=== PATIENT | male | born 1950 | race Caucasian/White ===

== ENCOUNTER 2020-03-18 00:04 | Emergency (ER) | payer MEDICARE ==
--- NOTE | 2020-03-18 00:07 | ED Physician Documentation ---
History of Present Illness - Stated complaint Stated Complaint: R SIDE PX - History obtained from History obtained from: Patient - Additonal information Additional information: The patient is a 69-year-old male who presents with abdominal pain as well as some right-sided lower back pain without hematuria or dysuria or urinary frequency he denies any bowel or bladder dysfunction or saddle anesthesia denies any fevers reports he has been to his doctor but his doctors not done anything according to the patient. Patient's had a previous cholecystectomy. Denies any nausea vomiting diarrhea or constipation. Review of Systems Constitutional: reports: Reviewed and negative Eyes: reports: Reviewed and negative Ears: reports: Reviewed and negative Nose: reports: Reviewed and negative Throat: reports: Reviewed and negative Cardiac: reports: Reviewed and negative Respiratory: reports: Reviewed and negative GI: reports: Abdominal Pain : reports: Reviewed and negative Skin: reports: Reviewed and negative Musculoskeletal: reports: Back pain Neurologic: reports: Reviewed and negative Psychiatric: reports: Reviewed and negative Endocrine: reports: Reviewed and negative Immunocompromised: reports: Reviewed and negative PD PAST MEDICAL HISTORY - Present Medications Home Medications: Ambulatory Orders Medication Instructions Recorded Confirmed Benztropine [Cogentin] 1 tab PO TID 03/18/20 03/18/20 Hydrocodone/Acetaminophen [[place] 1 each PO Q6HR PRN #10 tablet 03/18/20 5-325 Tablet] Omeprazole 1 tab PO DAILY 03/18/20 03/18/20 Ondansetron Odt [Zofran Odt] 4 mg TL Q6H PRN #10 tablet 03/18/20 Triamterene/Hydrochlorothiazid 1 tab PO DAILY 03/18/20 03/18/20 [Triamterene-Hctz 37.5-25 mg Cp] Trifluoperazine HCl 1 tab PO DAILY 03/18/20 03/18/20 - Allergies Allergies/Adverse Reactions: Allergies Allergy/AdvReac Type Severity Reaction Status Date / Time No Known Drug Allergies Allergy Verified 03/18/20 00:12 PD ED PE NORMAL - Vitals Vital signs reviewed: Yes - General General: Alert and oriented X 3, No acute distress - HEENT HEENT: PERRL - Neck Neck: Supple, no meningeal sign - Cardiac Cardiac: RRR, No murmur, Strong equal pulses - Respiratory Respiratory: No respiratory distress, Clear bilaterally - Abdomen Abdomen: Normal bowel sounds, Soft, Other (No midline abdominal pulsatile mass, diffuse abdominal tenderness with no peritoneal signs.) - Male Male : Deferred - Rectal Rectal: Deferred - Back Back: No CVA TTP, No spinal TTP, Other (Tenderness to the lumbar paraspinal muscles but no midline tenderness palpation no CVA tenderness.) - Derm Derm: Warm and dry - Extremities Extremities: No deformity - Neuro Neuro: Alert and oriented X 3, lamp shade sewer 2-12 intact, No motor deficit, No sensory deficit, Normal speech - Psych Psych: Normal mood, Normal affect Results - Vitals Vitals: Vital Signs - 24 hr 03/18/20 03/18/20 03/18/20 00:09 01:06 01:24 Temperature 37.2 C Heart Rate 96 79 Respiratory 16 16 16 Rate Blood Pressure 185/96 H 176/109 H O2 Saturation 96 98 03/18/20 02:37 Temperature Heart Rate 71 Respiratory 16 Rate Blood Pressure 176/94 H O2 Saturation 98 Oxygen O2 Source Room air - Labs Labs: Laboratory Tests 03/18/20 03/18/20 03/18/20 00:30 00:30 00:30 WBC 7.1 RBC 4.92 Hgb 14.9 Hct 43.9 MCV 89.2 MCH 30.3 MCHC 33.9 RDW 14.5 Plt Count 232 MPV 10.2 Neut # (Auto) 4.6 Lymph # (Auto) 1.7 [place] # (Auto) 0.6 Eos # (Auto) 0.2 Baso # (Auto) 0.0 Absolute Nucleated RBC 0.00 Nucleated RBC % 0.0 PT 13.1 H INR 1.2 APTT 26.5 Sodium 137 Potassium 3.4 L Chloride 99 L Carbon Dioxide 28 Anion Gap 10.0 BUN 14 Creatinine 1.4 H Estimated GFR (MDRD) 51 L Glucose 171 H Lactic Acid Calcium 9.4 Total Bilirubin 1.0 AST 26 ALT 39 Alkaline Phosphatase 98 Total Creatine Kinase 99 Total Protein 8.3 H Albumin 3.8 Globulin 4.5 H Albumin/Globulin Ratio 0.8 L Lipase 30 Urine Color Urine Clarity Urine pH Ur Specific [place] Urine Protein Urine Glucose (UA) Urine Ketones Urine Occult Blood Urine Nitrite Urine Bilirubin Urine Urobilinogen Ur Leukocyte Esterase Ur Microscopic Review Urine Culture Comments 03/18/20 03/18/20 00:30 01:50 WBC RBC Hgb Hct MCV MCH MCHC RDW Plt Count MPV Neut # (Auto) Lymph # (Auto) [place] # (Auto) Eos # (Auto) Baso # (Auto) Absolute Nucleated RBC Nucleated RBC % PT INR APTT Sodium Potassium Chloride Carbon Dioxide Anion Gap BUN Creatinine Estimated GFR (MDRD) Glucose Lactic Acid 0.8 Calcium Total Bilirubin AST ALT Alkaline Phosphatase Total Creatine Kinase Total Protein Albumin Globulin Albumin/Globulin Ratio Lipase Urine Color YELLOW Urine Clarity CLEAR Urine pH 6.0 Ur Specific [place] <=1.005 Urine Protein NEGATIVE Urine Glucose (UA) NEGATIVE Urine Ketones NEGATIVE Urine Occult Blood NEGATIVE Urine Nitrite NEGATIVE Urine Bilirubin NEGATIVE Urine Urobilinogen 0.2 (NORMAL) Ur Leukocyte Esterase NEGATIVE Ur Microscopic Review NOT INDICATED Urine Culture Comments NOT INDICATED PD MEDICAL DECISION MAKING - ED course Complexity details: reviewed old records, reviewed results, re-evaluated patient, d/w patient, d/w family ED course: 69-year-old male with abdominal pain and some right-sided lower back pain for several weeks his CT scan preliminary radiology interpretation shows an impression of moderate intrahepatic biliary ductal dilation [place] particularly in the left lobe of the liver which is greater than expected for patient status post cholecystectomy further evaluation of nonemergent MR/MRCP is recommended. I explained these results in detail to the patient and family member and recommended outpatient follow-up which they have agreed to do. Departure - Departure Disposition: 01 Home, Self Care Clinical Impression: Intrahepatic bile duct dilation Abdominal pain Qualifiers: Abdominal location: unspecified location Qualified Code(s): R10.9 - Unspecified abdominal pain Condition: Stable Instructions: ED Abdominal Pain Unkn Cause Follow-Up: Jose Luis Che MD [Primary Care Provider] - Tomorrow Prescriptions: Hydrocodone/Acetaminophen [[place] 5-325 Tablet] 1 each PO Q6HR PRN #10 tablet PRN Reason: Pain Ondansetron Odt [Zofran Odt] 4 mg TL Q6H PRN #10 tablet PRN Reason: Nausea / Vomiting Comments: Please follow-up with your primary care provider this week.Your CT scan shows moderate intrahepatic biliary ductal dilation. Further evaluation with a nonemergent MRCP is recommended.
[2020-03-18] MEDS ORDERED: SODIUM CHLORIDE 0.9% 1,000 ML IV STA (00:16)
[2020-03-18] MEDS ORDERED: ONDANSETRON 4 MG/2 ML VIAL IVP STA (00:16)
[2020-03-18] MEDS ORDERED: MORPHINE 2 MG/ML CARPUJECT IVP STA (00:16)
[2020-03-18] MEDS ORDERED: KETOROLAC 30 MG/ML VIAL IVP STA (00:17)
[2020-03-18] MEDS ORDERED: IOVERSOL 320 100 ML VIAL IVP ONE ×2 (00:27→01:26)
[2020-03-18 00:38] LABS: BASOPHILS % (AUTO) 0.6 %; EOSINOPHILS # (AUTO) 0.2 10^3/uL (0.0-0.7); EOSINOPHILS % (AUTO) 2.4 %; HGB - HEMOGLOBIN 14.9 g/dL (14.0-18.0); LYMPHOCYTES # (AUTO) 1.7 10^3/uL (1.5-3.5); LYMPHOCYTES % (AUTO) 23.4 %; MEAN CORPUSCULAR HEMOGLOBIN 30.3 pg (27.0-31.0); MEAN CORPUSCULAR HGB CONC 33.9 g/dL (32.0-36.0); MEAN CORPUSCULAR VOLUME 89.2 fL (80.0-94.0); MEAN PLATELET VOLUME 10.2 fL (7.4-11.4); MONOCYTES # (AUTO) 0.6 10^3/uL (0.0-1.0); MONOCYTES % (AUTO) 7.9 %; NEUTROPHILS # (AUTO) 4.6 10^3/uL (1.5-6.6); NEUTROPHILS % (AUTO) 65.4 %; PLT - PLATELET COUNT 232 10^3/uL (130-450); RED BLOOD COUNT 4.92 10^6/uL (4.70-6.10); RED CELL DISTRIBUTION WIDTH 14.5 % (12.0-15.0); WHITE BLOOD COUNT 7.1 x10^3/uL (4.8-10.8)
[2020-03-18 00:43] LABS: INR 1.2 (0.8-1.2); PT - PROTHROMBIN TIME 13.1 secs (9.9-12.6)
[2020-03-18 00:51] LABS: PARTIAL THROMBOPLASTIN TIME 26.5 secs (24.9-33.3)
[2020-03-18 00:52] LABS: ALBUMIN 3.8 g/dL (3.2-5.5); ALBUMIN/GLOBULIN RATIO 0.8 (1.0-2.2); CALCIUM 9.4 mg/dL (8.5-10.3); CREATININE 1.4 mg/dL (0.6-1.2); TOTAL PROTEIN 8.3 g/dL (6.7-8.2)
[2020-03-18 02:01] LABS: BILIRUBIN,URINE NEGATIVE (NEGATIVE); GLUCOSE, URINE (UA) NEGATIVE (NEGATIVE); KETONES,URINE (UA) NEGATIVE (NEGATIVE); LEUKOCYTE ESTERASE, URINE NEGATIVE (NEGATIVE); NITRITE,URINE NEGATIVE (NEGATIVE); OCCULT BLOOD,URINE NEGATIVE (NEGATIVE); PROTEIN,URINE NEGATIVE (NEGATIVE); UROBILINOGEN,URINE 0.2 (NORMAL) E.U./dL (NORMAL)
[2020-03-18 02:38] VITALS: BP 176/94
[2020-03-18 02:41] LABS: CLARITY,URINE CLEAR (CLEAR)
--- NOTE | 2020-03-18 08:30 | CT Report ---
PROCEDURE: Abdomen/Pelvis W INDICATIONS: Abdominal CONTRAST: IV CONTRAST: Optiray 320 ml: 100 PO CONTRAST: *NO PO CONTRAST TECHNIQUE: After the administration of intravenous contrast, 5 mm thick sections acquired from the diaphragms to the symphysis. 5 mm thick coronal and sagittal reformats were acquired. For radiation dose reducti on, the following was used: automated exposure control, adjustment of mA and/or kV according to sangeeta ent size. COMPARISON: None. FINDINGS: Image quality: Excellent. ABDOMEN: Lung bases: Lung bases are clear. Heart size is normal. Aortic valve calcification noted. Solid organs: The gallbladder has been removed. There is moderate intrahepatic biliary ductal dilatat ion, more pronounced in the left hepatic lobe. There is also dilatation of the common hepatic duct an d common bile duct up to 1 cm. There is no intraductal mass or stone identified. There is however an abrupt cut off in duct caliber between series 3 images 43 and 44. Otherwise normal appearance of the liver, spleen, pancreas, adrenal glands, and kidneys. Peritoneum and bowel: Mild sigmoid colon diverticulosis. Bowel loops demonstrate normal wall thickne ss and caliber. No free fluid or air. Nodes and vessels: No retroperitoneal or mesenteric adenopathy by size criteria. Aorta and inferior vena cava are normal in size. Miscellaneous: No ventral hernias. PELVIS: Genitourinary: Bladder wall thickness is normal. Miscellaneous: Small fat-containing hernias. No pelvic or inguinal lymphadenopathy. Bones: No suspicious bony lesions. No vertebral body compression fractures. IMPRESSION: Moderate intrahepatic biliary ductal dilatation, particularly in the left hepatic lobe. This could be related to postcholecystectomy reservoir phenomenon, although the degree of dilatation is greater th an expected. There is concern for an intraductal stone, direct stricture, or potentially neoplasm. Fu rther evaluation with abdominal MRI/MRCP is recommended. No significant change from the preliminary report. Reviewed by: Amado Duvall MD on 03/18/2020 8:28 AM PDT Approved by: Amado Duvall MD on 03/18/2020 8:28 AM PDT Station ID: [id number]
== END 2020-03-18 02:50 | disposition home or self-care (01) ==
LOC: ED 00:04
DX: K83.8 Other specified diseases of biliary tract (principal); R10.9 Unspecified abdominal pain; Z90.49 Acquired absence of other specified parts of digestive tract
CPT/HCPCS: 36415; 74177; 80053; 81003; 82550; 83605; 83690; 85025; 85610; 85730; 96374; 99283; 99284; Q9967; 81001; 87086

== ENCOUNTER 2020-10-20 20:15 | Emergency (ER) | payer MEDICARE ==
[2020-10-20] MEDS ORDERED: oxyCODONE 5 MG TABLET PO STA (20:31)
--- NOTE | 2020-10-20 20:32 | ED Physician Documentation ---
PD HPI FOCAL NEURO - Stated complaint Stated Complaint: LOWER BACK PX - Chief complaint Chief Complaint: Back Pain - History obtained from History obtained from: Patient - Additional information Additional information: 70-year-old gentleman with history of hypertension, schizophrenia, and some vaguely described bone and joint disease has had a month worth of progressive sacral pain. Is worse if he lays on it. Not associated with weakness, numbness, tingling of the legs or saddle anesthesia. No bowel or bladder issues. No history of cancer. Review of Systems Constitutional: denies: Fever, Chills Throat: denies: Dental pain / toothache, Sore throat Cardiac: denies: Chest pain / pressure, Palpitations Respiratory: denies: Dyspnea PD PAST MEDICAL HISTORY - Past Medical History GI: Other - Past Surgical History Past Surgical History: Yes General: Cholecystectomy - Present Medications Home Medications: Ambulatory Orders Medication Instructions Recorded Confirmed Benztropine [Cogentin] 1 tab PO TID 03/18/20 03/18/20 Hydrocodone/Acetaminophen [[place] 1 each PO Q6HR PRN #10 tablet 03/18/20 5-325 Tablet] Omeprazole 1 tab PO DAILY 03/18/20 03/18/20 Ondansetron Odt [Zofran Odt] 4 mg TL Q6H PRN #10 tablet 03/18/20 Triamterene/Hydrochlorothiazid 1 tab PO DAILY 03/18/20 03/18/20 [Triamterene-Hctz 37.5-25 mg Cp] Trifluoperazine HCl 1 tab PO DAILY 03/18/20 03/18/20 Lidocaine Patch 5% [Lidoderm Patch] 1 patch TOP DAILY PRN #10 patch 10/20/20 Oxycodone HCl/Acetaminophen 1 - 2 each PO Q6H PRN #14 tablet 10/20/20 [Percocet 5-325 mg Tablet] - Allergies Allergies/Adverse Reactions: Allergies Allergy/AdvReac Type Severity Reaction Status Date / Time No Known Drug Allergies Allergy Verified 10/20/20 20:23 - Social History Does the pt smoke?: No Smoking Status: Never smoker PD ED PE NORMAL - Vitals Vital signs reviewed: Yes - General General: Alert and oriented X 3, No acute distress - HEENT HEENT: PERRL, EOMI - Neck Neck: Supple, no meningeal sign, No bony TTP - Back Back: Other (Tender over the upper sacrum and L5/S1 junction. No pilonidal cyst.) - Extremities Extremities: Other (The patient has equal and normal Achilles and patellar reflexes bilaterally. Normal sensation in all areas of the legs. Patient denies saddle anesthesia. Normal strength in flexion-extension at the ankles, knees, and flexion of the hips.) - Neuro Neuro: Alert and oriented X 3, Normal speech Results - Vitals Vitals: Vital Signs - 24 hr 10/20/20 20:21 Temperature 36.2 C L Heart Rate 73 Respiratory 16 Rate Blood Pressure 152/87 H O2 Saturation 96 Oxygen O2 Source Room air PD MEDICAL DECISION MAKING - ED course ED course: 70-year-old gentleman presents with a month worth of progressive sacral pain. There was no trauma. No pilonidal cyst on exam. No evidence of infection or spinal cord issue. CT scanning done to rule out malignancy given his age and negative for same. I am prescribing a short course of short-acting opioid pain medication for this patient. 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 I have discussed that the opioids are for short term therapy only, and will not be refilled from the ED. Departure - Departure Disposition: 01 Home, Self Care Clinical Impression: Sacral pain Condition: Good Record reviewed to determine appropriate education?: Yes Instructions: ED Sacroiliitis Prescriptions: Lidocaine Patch 5% [Lidoderm Patch] 1 patch TOP DAILY PRN #10 patch PRN Reason: pain Oxycodone HCl/Acetaminophen [Percocet 5-325 mg Tablet] 1 - 2 each PO Q6H PRN #14 tablet PRN Reason: pain Comments: There are some specific causes of sacral pain that we generally do not work-up in the emergency department, but your primary care physician may want to do testing for such as HLA-B27. Return for new or worsening symptoms but do follow-up with your primary care physician and discuss physical therapy as well. I am prescribing a short course of narcotic pain medication for you. These are potentially dangerous and addictive medications that should be used carefully. These medications may constipate you. Take an bjjk-[id number] stool softener (docusate) twice daily with plenty of water while taking these medications. If y ou go 24 hours without a bowel movement, take [id number] miralax, per package instructions. Do not drink or drive while taking these medications. If you received narcotic or sedating medications while in the emergency department, do not drive for 24 hours. Store this medication in a safe, secure place and out of reach of children. It is a violation of federal law to give or sell this medication to another person or to use in a manner other than prescribed. The ED will not refill narcotic prescriptions, including prescriptions lost or stolen. To dispose of unwanted medications: 1. [facility] at [address] in [place] has a medication drop box. They accept prescription medications (in pill form) Sunday through Sunday 9:00 a.m. to 5:00 p.m. 2. The [facility] [employer] accepts prescription medications (in pill form only) for disposal year round. Call for more information. 3. Contact the [facility] for the next [facility] sponsored prescription drug collection event. , [phone], or [phone]; Note that many narcotic pain relievers also contain Tylenol/acetaminophen. Please ensure that your total dose of acetaminophen from all sources does not exceed 3 g (3000 mg) per day.
--- NOTE | 2020-10-20 21:24 | CT Report ---
PROCEDURE: PELVIS WO INDICATIONS: sacral pain, scan from L4 through coccyx TECHNIQUE: Noncontrast 3 mm axial sections acquired through the bony pelvis, with coronal and sagittal reformatt ing. For radiation dose reduction, the following was used: automated exposure control, adjustment of mA and/or kV according to patient size. COMPARISON: CT abdomen and pelvis 03/18/2020. FINDINGS: Image quality: Excellent. Bones: No suspicious osseous lesion. Left iliac wing bone island. No fracture or dislocation. SI jerod nts are symmetric. Mild degenerative change at the lower lumbar spine. Soft tissues: Moderate calcified plaque in the infrarenal abdominal aorta and iliac arteries. No ane urysm. Prominent prostate gland. No free fluid. No adenopathy. No dilated loops of bowel. Question of fat-containing left inguinal hernia. IMPRESSION: No acute osseous abnormality. Reviewed by: Mario Alberto Montalvo MD on 10/20/2020 9:23 PM PDT Approved by: Mario Alberto Montalvo MD on 10/20/2020 9:23 PM PDT Station ID: [id number]
[2020-10-20 22:06] VITALS: BP 138/86
== END 2020-10-20 22:06 | disposition home or self-care (01) ==
LOC: ED 20:15 → SUPCPDRO 20:15 → ED 22:06
DX: M53.3 Sacrococcygeal disorders, not elsewhere classified (principal); I10 Essential (primary) hypertension
CPT/HCPCS: 72192; 99284; A9270

== ENCOUNTER 2020-11-17 12:55 | Outpatient (CLI) | payer MEDICARE ==
[2020-11-17 20:21] LABS: BILIRUBIN,TOTAL 1.5 mg/dL (0.2-1.0); CALCIUM 9.3 mg/dL (8.5-10.3); CREATININE 1.2 mg/dL (0.6-1.2); POTASSIUM 3.9 mmol/L (3.5-5.0); TOTAL PROTEIN 8.1 g/dL (6.7-8.2)
[2020-11-17 20:34] LABS: THYROID STIMULATING HORMONE 1.04 uIU/mL (0.34-5.60)
[2020-11-17 20:40] LABS: PROLACTIN 6.93 ng/mL
== END 2020-11-17 12:56 | disposition home or self-care (01) ==
LOC: LAB.S 12:55
PROVIDERS: ATTEND Internal Medicine
DX: D35.2 Benign neoplasm of pituitary gland (principal); Z79.899 Other long term (current) drug therapy; Z12.5 Encounter for screening for malignant neoplasm of prostate; E29.1 Testicular hypofunction
CPT/HCPCS: 36415; 80053; 84146; 84402; 84443; G0103; 81599; 84153

== ENCOUNTER 2021-01-18 02:53 | Outpatient (CLI) | payer MEDICARE | END 2021-01-18 02:54 | disposition critical access hospital (66) | LOC: EMS 02:53 | DX: R00.0 Tachycardia, unspecified (principal); R41.0 Disorientation, unspecified; F22 Delusional disorders | CPT/HCPCS: A0425; A0427 ==

== ENCOUNTER 2021-01-18 03:16 | Emergency (ER) | payer MEDICARE ==
--- NOTE | 2021-01-18 03:42 | ED Physician Documentation ---
PD HPI ALTERED MENTAL STATUS - Stated complaint Stated Complaint: CONFUSION - Chief complaint Chief Complaint: Neuro - History obtained from History obtained from: Patient, EMS - History of Present Illness Timing - onset: Enter time (02:00) Timing - details: Abrupt onset Quality / character: Confused Associated symptoms: No: Fever, Headache, Stiff neck, Dyspnea, Cough, NVD, Urinary sx, General weakness, Focal weakness, Seizure activity, Syncope Basline status: Ambulatory, Independent, Confused Similar symptoms before: Has not had sx before - Additional information Additional information: woke from sleep approximately 2 AM with confusion, c/o rapid palpitations. sister called 911. By the time patient arrives via EMS, he denies palpitations. EMS says patient has made odd statements en route, such as he felt he was going to but that everyone else such as the medics were also going to imminently. He denies symptoms on my H+P , telling jokes and anecdotes. Review of Systems Constitutional: reports: Reviewed and negative Cardiac: reports: Palpitations (resolved). denies: Chest pain / pressure, Pedal edema, Calf pain Respiratory: reports: Reviewed and negative GI: reports: Reviewed and negative Musculoskeletal: denies: Extremity swelling Neurologic: denies: Headache PD PAST MEDICAL HISTORY - Past Medical History Past Medical History: Yes GI: Other - Past Surgical History Past Surgical History: Yes General: Cholecystectomy - Present Medications Home Medications: Ambulatory Orders Medication Instructions Recorded Confirmed Benztropine [Cogentin] 1 tab PO TID 03/18/20 03/18/20 Hydrocodone/Acetaminophen [[place] 1 each PO Q6HR PRN #10 tablet 03/18/20 5-325 Tablet] Omeprazole 1 tab PO DAILY 03/18/20 03/18/20 Ondansetron Odt [Zofran Odt] 4 mg TL Q6H PRN #10 tablet 03/18/20 Triamterene/Hydrochlorothiazid 1 tab PO DAILY 03/18/20 03/18/20 [Triamterene-Hctz 37.5-25 mg Cp] Trifluoperazine HCl 1 tab PO DAILY 03/18/20 03/18/20 Lidocaine Patch 5% [Lidoderm Patch] 1 patch TOP DAILY PRN #10 patch 10/20/20 Oxycodone HCl/Acetaminophen 1 - 2 each PO Q6H PRN #14 tablet 10/20/20 [Percocet 5-325 mg Tablet] - Allergies Allergies/Adverse Reactions: Allergies Allergy/AdvReac Type Severity Reaction Status Date / Time No Known Drug Allergies Allergy Verified 01/18/21 03:30 - Social History Does the pt smoke?: No Smoking Status: Never smoker Does the pt drink ETOH?: No Does the pt have substance abuse?: No - Immunizations Immunizations are current?: No - POLST Patient has POLST: No PD ED PE NORMAL - Vitals Vital signs reviewed: Yes - General General: No acute distress, Well developed/nourished, Other (awake, alert, conversant. 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, No motor deficit, No sensory deficit, Normal speech Eye Opening: Spontaneous Motor: Obeys Commands Verbal: Confused (forgetful) GCS Score: 14 - Psych Psych: Normal mood, Normal affect PD ED PE EXPANDED - Cardiac Cardiac: Regular Rhythm, Murmur Present (2/6 ARACELI greatest at left 2nd ICS) Results - Vitals Vitals: Oxygen O2 Source Room air - EKG (time done) No standard instances Rate: Rate (enter#) (81) Rhythm: NSR [place]: Normal Intervals: Normal [place] QRS: Normal Ischemia: Normal ST segments, Non specific changes (I flip/flat V6, I, aVL) - Labs Labs: Laboratory Tests 01/18/21 01/18/21 04:13 04:13 WBC 6.7 RBC 4.40 L Hgb 13.7 L Hct 40.1 L MCV 91.1 MCH 31.1 H MCHC 34.2 RDW 14.2 Plt Count 211 MPV 10.6 Neut # (Auto) 5.0 Lymph # (Auto) 1.0 L Saline # (Auto) 0.6 Eos # (Auto) 0.1 Baso # (Auto) 0.0 Absolute Nucleated RBC 0.00 Nucleated RBC % 0.0 Sodium 135 Potassium 3.5 Chloride 100 L Carbon Dioxide 24 Anion Gap 11.0 BUN 24 H Creatinine 1.3 H Estimated GFR (MDRD) 55 L Glucose 277 H Calcium 8.5 Total Bilirubin 0.7 AST 23 ALT 33 Alkaline Phosphatase 72 Total Protein 7.1 Albumin 3.5 Globulin 3.6 Albumin/Globulin Ratio 1.0 Lipase 31 Ethyl Alcohol < 5.0 - Rads (name of study) CT head Radiology: Prelim report reviewed, See rad report PD MEDICAL DECISION MAKING - ED course Complexity details: reviewed results, re-evaluated patient, considered differential, d/w patient ED course: 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 NSR on monitor and EKG. He is mildly confused but ED RN spoke to sister over the phone an she says this is his baseline mental status. Results of tests, including CTH, EKG, and blood tests are reassuring. Mild hyperglycemia d/w patient an encouraged to follow up for this result Departure - Departure Disposition: 01 Home, Self Care Clinical Impression: Palpitations, Hyperglycemia Condition: Good Instructions: ED Palpitations, ED Hyperglycemia New Susp Diabetes Follow-Up: Mat Sotelo MD [Primary Care Provider] - Discharge Date/Time: 01/18/21 06:22
[2021-01-18] MEDS ORDERED: SODIUM CHLORIDE 0.9% 1,000 ML IV STA (03:43)
[2021-01-18 04:20] LABS: BASOPHILS % (AUTO) 0.4 %; EOSINOPHILS # (AUTO) 0.1 10^3/uL (0.0-0.7); HCT - HEMATOCRIT 40.1 % (42.0-52.0); HGB - HEMOGLOBIN 13.7 g/dL (14.0-18.0); LYMPHOCYTES % (AUTO) 15.3 %; MEAN CORPUSCULAR HEMOGLOBIN 31.1 pg (27.0-31.0); MEAN CORPUSCULAR HGB CONC 34.2 g/dL (32.0-36.0); MEAN CORPUSCULAR VOLUME 91.1 fL (80.0-94.0); MEAN PLATELET VOLUME 10.6 fL (7.4-11.4); MONOCYTES # (AUTO) 0.6 10^3/uL (0.0-1.0); MONOCYTES % (AUTO) 8.8 %; NEUTROPHILS % (AUTO) 74.2 %; PLT - PLATELET COUNT 211 10^3/uL (130-450); RED CELL DISTRIBUTION WIDTH 14.2 % (12.0-15.0); WHITE BLOOD COUNT 6.7 x10^3/uL (4.8-10.8)
[2021-01-18 04:29] LABS: ALBUMIN 3.5 g/dL (3.2-5.5); ALKALINE PHOSPHATASE 72 IU/L (42-121); ALT ALANINE AMINOTRANSFERASE 33 IU/L (10-60); AST ASPARTATE AMINOTRANSFERASE 23 IU/L (10-42); BILIRUBIN,TOTAL 0.7 mg/dL (0.2-1.0); BUN - BLOOD UREA NITROGEN 24 mg/dL (6-20); CALCIUM 8.5 mg/dL (8.5-10.3); CARBON DIOXIDE - CO2 24 mmol/L (21-32); CHLORIDE 100 mmol/L (101-111); CREATININE 1.3 mg/dL (0.6-1.2); ETOH - ETHANOL < 5.0 mg/dL; GFR - MDRD 55 (>89); GLUCOSE 277 mg/dL (70-100); LIPASE 31 U/L (22-51); POTASSIUM 3.5 mmol/L (3.5-5.0); SODIUM 135 mmol/L (135-145); TOTAL PROTEIN 7.1 g/dL (6.7-8.2)
[2021-01-18 05:33] VITALS: BP 176/95
--- NOTE | 2021-01-18 07:06 | CT Report ---
PROCEDURE: HEAD WO INDICATIONS: confusion TECHNIQUE: Noncontrast 4.5 mm thick angled axial sections acquired from the foramen magnum to the vertex. For r adiation dose reduction, the following was used: automated exposure control, adjustment of mA and/or kV according to patient size. COMPARISON: None FINDINGS: Image quality: Excellent. CSF spaces: Basal cisterns are patent. No extra-axial fluid collections. The ventricles are symmet chidi in size and shape. Brain: No intracranial bleeds or masses. There is cerebral volume loss for age, with resultant vent ricular and sulcal prominence. There are periventricular and deep white matter chronic small vessel ischemic changes. There is intracranial internal carotid artery and vertebral artery atherosclerosis . Skull and face: Calvarium and visualized facial bones appear intact, without suspicious lesions. Sinuses: Visualized sinuses and mastoids are clear. IMPRESSION: No acute intracranial disease process. Reviewed by: Stephania Cooley MD, PhD on 01/18/2021 7:05 AM PDT Approved by: Stephania Cooley MD, PhD on 01/18/2021 7:05 AM PDT Station ID: [id number]
== END 2021-01-18 06:22 | disposition home or self-care (01) ==
LOC: EDUNIT# → EDBD → SUPCPDRO 03:16 → ED 03:16
DX: R00.2 Palpitations (principal); R73.9 Hyperglycemia, unspecified
CPT/HCPCS: 36415; 70450; 80053; 83690; 85025; 93005; 96360; 99284; G0480; 80320

== ENCOUNTER 2021-05-10 14:36 | Outpatient (CLI) | payer MEDICARE ==
[2021-05-10 20:24] LABS: BASOPHILS % (AUTO) 0.6 %; EOSINOPHILS # (AUTO) 0.2 10^3/uL (0.0-0.7); EOSINOPHILS % (AUTO) 2.7 %; HCT - HEMATOCRIT 45.8 % (42.0-52.0); HGB - HEMOGLOBIN 15.7 g/dL (14.0-18.0); LYMPHOCYTES % (AUTO) 29.5 %; MEAN CORPUSCULAR HEMOGLOBIN 31.1 pg (27.0-31.0); MEAN CORPUSCULAR HGB CONC 34.3 g/dL (32.0-36.0); MEAN CORPUSCULAR VOLUME 90.7 fL (80.0-94.0); MEAN PLATELET VOLUME 11.4 fL (7.4-11.4); MONOCYTES # (AUTO) 0.7 10^3/uL (0.0-1.0); MONOCYTES % (AUTO) 10.4 %; NEUTROPHILS # (AUTO) 3.8 10^3/uL (1.5-6.6); NEUTROPHILS % (AUTO) 56.7 %; PLT - PLATELET COUNT 240 10^3/uL (130-450); RED BLOOD COUNT 5.05 10^6/uL (4.70-6.10); RED CELL DISTRIBUTION WIDTH 13.4 % (12.0-15.0); WHITE BLOOD COUNT 6.7 x10^3/uL (4.8-10.8)
[2021-05-10 20:43] LABS: ALBUMIN 4.1 g/dL (3.2-5.5); BILIRUBIN,TOTAL 1.1 mg/dL (0.2-1.0); CALCIUM 9.6 mg/dL (8.5-10.3); CREATININE 1.2 mg/dL (0.6-1.2); POTASSIUM 3.7 mmol/L (3.5-5.0); TOTAL PROTEIN 8.4 g/dL (6.7-8.2)
[2021-05-10 21:45] LABS: ESTIMATED AVERAGE GLUCOSE 214 mg/dL (70-100); HEMOGLOBIN A1c% 9.1 % (4.27-6.07)
== END 2021-05-10 14:37 | disposition home or self-care (01) ==
LOC: LAB.S 14:36
PROVIDERS: ATTEND Internal Medicine
DX: R73.9 Hyperglycemia, unspecified (principal); Z79.899 Other long term (current) drug therapy; D35.2 Benign neoplasm of pituitary gland; Z12.5 Encounter for screening for malignant neoplasm of prostate; E29.1 Testicular hypofunction
CPT/HCPCS: 36415; 80053; 81599; 83036; 84402; 84403; 85025